=== PATIENT | male | born 1950 | race Caucasian/White ===

== ENCOUNTER → 2018-03-21 | Outpatient (CLI) | payer MEDICARE, OTHER | LOC: COL.RAD 09:38 | DX: E04.1 Nontoxic single thyroid nodule (principal) ==

== ENCOUNTER → 2022-08-28 | Outpatient (RCR) | payer MEDICARE, OTHER | LOC: WSOT | DX: M79.602 Pain in left arm (principal) ==

== ENCOUNTER 2022-09-18 10:00 | Outpatient (RCR) | payer MEDICARE, OTHER | END 2022-09-28 | disposition home or self-care (01) | LOC: WSOT | DX: M79.602 Pain in left arm (principal) ==

== ENCOUNTER 2023-07-05 08:15 | Day surgery (SDC) | payer MEDICARE ==
[~2023-07-05] VITALS: Ht 182.9 cm; Wt 90.9 kg
[2023-07-05] MEDS ORDERED: FLOMAX 0.40.4 MG/CAP PO (09:10)
[2023-07-05 10:24] VITALS: BP 135/78; PULSE 57; TEMP 97.7
[2023-07-05 10:30] VITALS: BP 145/73; PULSE 58
[2023-07-05 10:45] VITALS: BP 150/76; PULSE 53
--- NOTE | 2023-07-05 11:02 | NUR ---
1025- PATIENT RETURNS TO [facility] [place] [facility] VIA CART. PT AWAKE AND ALERT. RESPIRATIONS UNLABORED. AMBULATED TO RECLINER CHAIR WITH 2:1 SBA. PT DENIES NAUSEA OR ABDOMINAL PAIN. HOOKED UP TO MONITOR AND VS OBTAINED. CALL LIGHT AT SIDE. 1027- DR. HAYS IN ROOM SPEAKING WITH PATIENT. 1032- PATIENT TOLERATING COFFEE AND MUFFIN WITHOUT NAUSEA OR ABD PAIN. 1047- D/C INSTRUCTIONS REVIEWED WITH PATIENT. PT VERBALIZED UNDERSTANDING AND A COPY OF INSTRUCTIONS PROVIDED IN D/C FOLDER. 1054- PATIENT DRESSES SELF. 1102- PATIENT DISCHARGED FROM UNIT VIA W/C TO A PERSONAL VEHICLE. PT LEFT HOSPITAL IN STABLE CONDITION.
[2023-07-05 12:26] VITALS: BP 166/83; PULSE 53; TEMP 98.3
--- NOTE | 2023-07-05 12:29 | NUR ---
0853 Pt ambulatory to bay 4 with a steady gait, breathing even and unlabored. Pt is alert and oriented. Consents reviewed w/ and signed by pt. IV established. LR infusing via gravity at KVO. Call light in reach. Warm blanket provided.
== END 2023-07-05 11:02 | disposition home or self-care (01) ==
LOC: SDCO 08:15
DX: Z12.11 Encounter for screening for malignant neoplasm of colon (principal); G47.33 Obstructive sleep apnea (adult) (pediatric); F17.290 Nicotine dependence, other tobacco product, uncomplicated
CPT/HCPCS: J2704; J7120

== ENCOUNTER → 2023-10-08 | Outpatient (CLI) | payer MEDICARE, OTHER ==
[~2023-10-08] MED LIST: FLOMAX 0.40.4 MG/CAP PO; PRINZIDE 25 MG-1 TAB PO; PROAIR HFA0.09 MG/AC IH
== END ==
LOC: COL.RAD 14:35
DX: Z12.2 Encounter for screening for malignant neoplasm of respiratory organs (principal); F17.200 Nicotine dependence, unspecified, uncomplicated

== ENCOUNTER 2024-01-19 09:09 | Emergency (ER) | payer MEDICARE ==
[~2024-01-19] VITALS: Ht 182.9 cm; Wt 95.0 kg
[2024-01-19 09:16] VITALS: TEMP 98.3
[2024-01-19] MEDS ORDERED: NS 1,000 ML IV ONE (09:30)
[2024-01-19 09:53] LABS: PH 5.5 (5.0-8.5); URINE APPEARANCE CLEAR (CLEAR/HAZY); URINE BLOOD 2+ (NEGATIVE); URINE COLOR YELLOW (YELLOW); URINE GLUCOSE NEGATIVE (NEGATIVE); URINE KETONE 1+ (NEGATIVE); URINE NITRATE NEGATIVE (NEGATIVE); URINE PROTEIN(semi-quant) NEGATIVE (NEGATIVE); URINE UROBILINOGEN 0.2 E.U/dL (0.2-1.0)
[2024-01-19 10:00] LABS: COLLECTION METHOD CATHETER
[2024-01-19 10:03] LABS: HEMATOCRIT 39.9 % (42.0-52.0); HEMOGLOBIN 13.2 g/dl (13.5-18.0); MEAN CELL VOLUME 91 fl (80.0-100.0); MEAN CORPUSCULAR HEMOGLOBIN 30 pg (27-31); MEAN CORPUSCULAR HGB CONC 33 g/dl (33.0-37.0); PLATELET COUNT 212 K/mm3 (130-400); RED BLOOD COUNT 4.39 M/mm3 (4.20-5.60); REDCELL DISTRIBUTION WIDTH-CV 13.2 % (11.5-14.5)
[2024-01-19 10:21] LABS: ALBUMIN 3.6 g/dL (3.4-4.8); CALCIUM 8.8 mg/dL (8.4-10.2); CREATININE, serum 1.32 mg/dL (0.72-1.25); LYMPHOCYTE 6 % (20.0-51.0); NEUTROPHILS 84 % (42.0-75.2); POTASSIUM 4.1 mEq/L (3.5-4.5); TOTAL PROTEIN 6.3 g/dl (6.2-8.1)
[2024-01-19 10:22] LABS: EOSINOPHIL 1 % (0-4); PLATELET ESTIMATE NORMAL (NORMAL)
[2024-01-19 11:00] VITALS: BP 159/80; PULSE 59
== END 2024-01-19 11:18 | disposition home or self-care (01) ==
LOC: COL.ER 09:09
PROVIDERS: Emergency Medicine
DX: R33.9 Retention of urine, unspecified (principal)
CPT/HCPCS: J7030

== ENCOUNTER 2024-03-17 16:49 | Emergency (ER) | payer MEDICARE ==
[~2024-03-17] VITALS: Ht 182.9 cm; Wt 90.9 kg
[2024-03-17 16:58] VITALS: TEMP 98
[2024-03-17 17:36] LABS: COLLECTION METHOD CATHETER
[2024-03-17 17:46] LABS: PH 6.5 (5.0-8.5); URINE APPEARANCE CLEAR (CLEAR/HAZY); URINE BLOOD 3+ (NEGATIVE); URINE COLOR YELLOW (YELLOW); URINE GLUCOSE NEGATIVE (NEGATIVE); URINE KETONE NEGATIVE (NEGATIVE); URINE NITRATE NEGATIVE (NEGATIVE); URINE PROTEIN(semi-quant) NEGATIVE (NEGATIVE); URINE UROBILINOGEN 0.2 E.U/dL (0.2-1.0)
[2024-03-17 18:38] VITALS: BP 156/79; PULSE 62
[2024-03-20] MEDS ORDERED: CIPRO 250MG TA250 MG PO (14:25)
[2024-03-22] MEDS ORDERED: CIPRO 500MG TA500 MG PO (19:46)
== END 2024-03-17 18:38 | disposition home or self-care (01) ==
LOC: COL.ER 16:49
PROVIDERS: Nurse Practitioner
DX: N40.1 Benign prostatic hyperplasia with lower urinary tract symptoms (principal); R33.8 Other retention of urine
CPT/HCPCS: 31860; A4314